=== PATIENT | female | born 1945 | race Caucasian/White ===

== ENCOUNTER 2024-09-09 07:05 | Day surgery (SDC) | payer MEDICARE, SELFPAY ==
[2024-09-09 08:03] VITALS: BMI 30.2
--- NOTE | 2024-09-09 15:45 | ITS.CL.CARDI ---
Pipe [employer] Builder - Cardioversion
Cardioversion
Procedure Report:
Date of Procedure: 09/09/24
Procedure: Cardioversion
Indication: Symptomatic atrial fibrillation
Performing Physician: Latasha Blackwood DO [facility]
Anticoagulation: Eliquis
Technique: The patient was brought to the holding area. Signed informed consent was obtained. A time out was called and performed. The patient was anesthetized by the anesthesia service. Anticoagulation status was reviewed and appropriate. R2 pads
were placed anteriorly and posteriorly. A 200J synchronized biphasic shock followed by a 300J shock restored normal sinus rhythm without significant bradycardia. There were no complications.
Conclusion: Uncomplicated cardioversion from atrial fibrillation to sinus rhythm.
Recommendation: Routine post cardioversion care.
Elevated blood pressure at recent office visit and today. Patient did not take blood pressure medications prior to cardioversion and has a history of whitecoat syndrome.
She will monitor her blood pressures at home and give office a call with trends later this week
Continue intermission coordinator anticoagulation.
Scheduled for cardiac ablation 10/22/2024
== END 2024-09-09 09:35 | disposition home or self-care (01) ==
LOC: CATH 07:05
PROVIDERS: ATTENDING PHYSICIAN Internal Medicine Cardiovascular Disease; FAMILY PHYSICIAN Family Medicine; OTHER PHYSICIAN Internal Medicine Cardiovascular Disease
DX: I48.0 Paroxysmal atrial fibrillation (principal); I10 Essential (primary) hypertension; E78.5 Hyperlipidemia, unspecified; E11.65 Type 2 diabetes mellitus with hyperglycemia; E03.9 Hypothyroidism, unspecified; I34.0 Nonrheumatic mitral (valve) insufficiency; G47.33 Obstructive sleep apnea (adult) (pediatric); Z79.01 Long term (current) use of anticoagulants; Z79.84 Long term (current) use of oral hypoglycemic drugs
CPT/HCPCS: 92960; 93005

== ENCOUNTER 2024-12-17 07:39 | Day surgery (SDC) | payer MEDICARE, SELFPAY ==
[2024-10-02 12:55] VITALS: BMI 30.3
[2024-12-16 08:31] VITALS: BMI 30.1
[2024-12-17] VITALS (13 sets, daily range): BP systolic 145–199; BP diastolic 56–109; BMI 29.8
[2024-12-17 08:46] LABS: Glucose - Point of Care 149 mg/dl (70-99)
[2024-12-17 11:06] LABS: ACT-LR - POC 255 Seconds (116-155)
[2024-12-17 11:22] LABS: ACT-LR - POC 314 Seconds (116-155)
--- NOTE | 2024-12-17 11:37 | ITS.CL.ABL ---
Search Engine [employer] Consultant - Ablation
Ablation
Procedure Report:
ELECTROPHYSIOLOGY ABLATION STUDY
DATE:: [ ]�����������������������������REFERRING: [ ]
INDICATION: Paroxysmal supraventricular tachycardia in the form of atrial fibrillation.
HISTORY: See H and P.
ANTIARRHYTHMIC DRUG: Atenolol
PRE-PROCEDURE MARIO: No intracardiac thrombus
PRESENTING RHYTHM: Sinus
'TIME-OUT':��called and confirmed.
SEDATION/ANESTHESIA:��provided via the anesthesia department using general anesthesia (LMA).
INTRAVENOUS/ARTERIAL ACCESS:
Right femoral venous - 8Fr
Left femoral venous - 8 Fr, 6 Fr
Ultrasound guidance for bilateral femoral vein access was utilized by me to obtain access with demonstration of normal anatomy
CHADS-VASC Score:
HAS-Bled Score
PROCEDURE:
1.��A decapolar CS catheter was placed within the CS for mapping and pacing.��This was also used as the reference catheter for the 3-D map.
2. The intracardiac ultrasound catheter was positioned in the RA to identify the FO for targeting of transseptal puncture, assist��in identification of the pulmonary vein ostia, monitoring pre and post ablation pulmonary vein flow velocities,
monitoring for 'bubble' formation during RF application as a sign of thermal injury,��and to monitor for pericardial effusion during mapping and ablation procedure.���Left atrial size, LV ejection fraction, and pulmonary vein flows were monitored
pre and post ablation procedure. The other valves were inspected and found to be free of significant regurgitation or stenosis.
3.��Half of the calculated heparin bolus was administered prior to the first transeptal puncture.��Transseptal puncture was performed to diagnose RA and LA pressure so that safety of LA mapping and ablation could be further assessed, and to access
the left atrium and pulmonary veins for mapping and ablation.��This entailed advancing an 16 Tunis[place] sheath dilator and RF wire with dilator into the superior vena cava and withdrawing both (monitoring intracardiac ultrasound, fluoroscopy and tip
pressure) with the tip oriented toward the atrial septum.��The fossa ovalis was engaged (indicated by sudden displacement of the sheath tip as well as tenting of the fossa seen on intracardiac ultrasound).��Left atrial access required a pass with
the Arlene needle extended.��Left atrial catheter position was confirmed by pressure monitoring (RA mean pressure 8 mm Hg and LA mean presure 14 mm Hg), LA saturation (99%),��as well as fluoroscopy.��The sheath was advanced over the dilator
and positioned in the left atrium.��This procedure was repeated for the Agilis sheath.��The remainder of the calculated heparin bolus was administered and heparin was
infused to maintain ACT at 300 -350 seconds throughout the case.
4.��RA pacing was performed via the proximal decapolar poles and LA pacing was performed via the distal decapolr poles.
5. A quadrapolar catheter was first positioned at the His position for His Bundle recording which was tagged via the 3-D Navex sytem, and then passed to the RVA for RV pacing and recording.
6. The multipolar catheter and the PFA catheter placed in each of the LIPV, LSPV, RSPV and the RIPV.��
7.��Next, a 3-D map was created using Navex.���A 3-D reconstructed CT image was compared to the 3-D Navex map to assist in anatomic interpretation, mapping and ablation.��The CT image and the NavX image were fused.
8. A total of 50 lesions were placed to the pulmonary veins and left atrial posterior wall including the roof and the floor. The veins were addressed in the [place] and basket pose in the flower pose to the roof posterior wall and LA floor. This
rendered entrance and exit block in all 4 pulmonary veins and the left atrial posterior wall from roof to floor. Prior to ablation there was APD's couplets and triplets from the left superior pulmonary vein. Post procedure EPS did not demonstrate
any inducible tachycardia. Glycopyrrolate was given prior to utilizing PFA.
9. Normal sinus node and AV darshan function were noted.
TOTAL FLOURO TIME: 11.8 minutes 80 mGy
TOTAL RF DURATION: 0 minutes
REVERSAL OF HEPARIN: 35 mg of protamine, slow IV administration
COMPLICATIONS:
None
Intracardiac US shows no pericardial effusion post ablation.
SUMMARY:��
Complex left atrial mapping and ablation.
Isolation of all 4 pulmonary veins and left atrial posterior wall as above.
RECOMMENDATIONS:
1. Ambulate in 4 hours and consider same-day discharge
2. Resume anticoagulation
3.� Consider same-day discharge
4.��Outpatient follow-up with Dr. Ti Lomax
Copy to: Dr. Ti Lomax
[2024-12-17 12:53] LABS: Glucose - Point of Care 161 mg/dl (70-99)
[2024-12-17] MEDS: SUBLIMAZE 25 MCG IV (15:37)
--- NOTE | 2024-12-17 15:46 | PTCARENOTE ---
approx 1325 when removing thick figure of 8 dressing sm hematoma found at rt groin. suture removed , pressure held for 10 min. pt uncomfortable w groin pressure. venita rivas mustanger at bedside assessing groin and gave orders for pain med.
--- NOTE | 2024-12-17 15:51 | PTCARENOTE ---
rt groin w ecchomosis but soft no hematoma present . pt comfortable. will continue to monitor .
--- NOTE | 2024-12-17 17:21 | W.PN.UPDATE ---
Update Note
Progress Note Update
Pt seen post PFA. Bilat groin sites with FOE closure. Right groin with small ht/ooze that was managed with manual compression, now soft with mild ecchymosis, mildly tender, palpable distal pulses, Left groin site without ht/bleeding, non tender.
Post EKG NSR 90s, no acute changes. Resume Eliquis tonight at usual time and continue other meds as before. Followup at [facility] as scheduled. Home later today if groin site/tele remain stable.
== END 2024-12-17 17:15 | disposition home or self-care (01) ==
LOC: CATH 07:39
PROVIDERS: ATTENDING PHYSICIAN Internal Medicine Cardiovascular Disease; FAMILY PHYSICIAN Family Medicine; OTHER PHYSICIAN Internal Medicine Cardiovascular Disease
DX: E03.9 Hypothyroidism, unspecified (principal); E11.9 Type 2 diabetes mellitus without complications; E78.5 Hyperlipidemia, unspecified; I48.0 Paroxysmal atrial fibrillation; F41.9 Anxiety disorder, unspecified; G47.33 Obstructive sleep apnea (adult) (pediatric); I08.1 Rheumatic disorders of both mitral and tricuspid valves; I10 Essential (primary) hypertension; K58.9 Irritable bowel syndrome, unspecified; K21.9 Gastro-esophageal reflux disease without esophagitis; I47.19 Other supraventricular tachycardia; M19.90 Unspecified osteoarthritis, unspecified site; R91.8 Other nonspecific abnormal finding of lung field; K76.0 Fatty (change of) liver, not elsewhere classified; M81.0 Age-related osteoporosis without current pathological fracture; Z79.890 Hormone replacement therapy; G43.909 Migraine, unspecified, not intractable, without status migrainosus; E66.9 Obesity, unspecified; Z68.30 Body mass index [BMI] 30.0-30.9, adult; E53.8 Deficiency of other specified B group vitamins; Z79.899 Other long term (current) drug therapy; Z79.01 Long term (current) use of anticoagulants; Z79.84 Long term (current) use of oral hypoglycemic drugs; Z88.5 Allergy status to narcotic agent; Z88.0 Allergy status to penicillin; Z88.2 Allergy status to sulfonamides; Z85.828 Personal history of other malignant neoplasm of skin; Z87.891 Personal history of nicotine dependence; E83.42 Hypomagnesemia; R42 Dizziness and giddiness; K29.50 Unspecified chronic gastritis without bleeding
CPT/HCPCS: C1732; C1894; C1730; C1892; C1759; 76937; 82962; 85347; 93005; 93656; 93657; C1733; C1766